=== PATIENT | female | born 1990 | race Hispanic/Latino ===

== ENCOUNTER 2018-11-27 21:29 | Emergency (ER) | payer MEDICAID ==
[~2018-11-27 21:29] MED LIST: FERR-52 PO; PREN1TAB26 PO
[2018-11-27] MEDS ORDERED: ACETAMINOPHEN 325 MG TAB ONE (21:54)
[2018-11-27 22:03] LABS: APPEARANCE,URINE CLOUDY (CLEAR); BILIRUBIN,URINE NEGATIVE (NEGATIVE); COLOR,URINE YELLOW (YELLOW); GLUCOSE, URINE (UA) NEGATIVE (NEGATIVE); KETONES,URINE NEGATIVE (NEGATIVE); LEUKOCYTE ESTERASE ,URINE MODERATE (NEGATIVE); NITRATE,URINE NEGATIVE (NEGATIVE); OCCULT BLOOD,URINE LARGE (NEGATIVE); PH,URINE 6.5 (5.0-8.0); PROTEIN,URINE >=300 mg/dL (NEGATIVE); UROBILINOGEN,URINE 0.2 mg/dL (0.2-1.0)
[2018-11-27 22:10] LABS: BACTERIA,URINE Few /HPF (None Seen); WBC,URINE 26-50 /HPF (0-1)
[2018-11-27 22:11] LABS: SQUAMOUS EPITHELIAL CELL,UR Rare /HPF (0-2)
[2018-11-27 22:11] LABS: RAPID GROUP A STREP NEGATIVE (NEGATIVE)
[2018-11-27] MEDS ORDERED: CEFTRIAXONE SODIUM 1 GM ONE (22:20)
[2018-11-27] MEDS ORDERED: LIDOCAINE HCL-MPF 1% 2ML VIAL ONE (22:20)
== END 2018-11-27 23:02 | disposition home or self-care (01) ==
LOC: EDH 21:29
DX: O99.512 Diseases of the respiratory system complicating pregnancy, second trimester (principal); O23.12 Infections of bladder in pregnancy, second trimester; J06.9 Acute upper respiratory infection, unspecified; Z3A.15 15 weeks gestation of pregnancy
CPT/HCPCS: 81001; 87804 ×2; 87880; 96372; 99284; J0696; J3490

== ENCOUNTER 2018-12-25 13:02 | Observation (INO) | payer MEDICAID ==
[2018-12-25 14:04] LABS: APPEARANCE,URINE Clear (CLEAR); BILIRUBIN,URINE Negative (NEGATIVE); COLOR,URINE Yellow (YELLOW); GLUCOSE, URINE (UA) Negative (NEGATIVE); KETONES,URINE 40 mg/dL (NEGATIVE); LEUKOCYTE ESTERASE ,URINE Negative (NEGATIVE); NITRATE,URINE Negative (NEGATIVE); OCCULT BLOOD,URINE Moderate (NEGATIVE); PROTEIN,URINE Negative (NEGATIVE)
[2018-12-25] MEDS ORDERED: LACTATED RINGERS 1000ML 1,000 ML IV PRN (14:04)
[2018-12-25 14:06] LABS: BACTERIA,URINE Rare /HPF (None Seen); SQUAMOUS EPITHELIAL CELL,UR Rare /HPF (0-2); WBC,URINE 0-1 /HPF (0-1)
[2018-12-25 14:13] LABS: HEMATOCRIT 38.3 % (36-48); MEAN CORPUSCULAR HEMOGLOBIN 30.3 pg (27.0-33.0); MEAN CORPUSCULAR HGB CONC 34.4 g/dL (32.0-36.0); PLATELET COUNT (AUTO) 346 K/uL (130-400); RED BLOOD CELL COUNT(AUTO) 4.35 MIL/uL (4.00-5.50); RED CELL DISTRIBUTION WIDTH 12.9 % (11.0-15.5); WHITE BLOOD COUNT (AUTO) 12.9 K/uL (4.8-10.8)
[2018-12-25] MEDS ORDERED: DIAZEPAM 5 MG/ML 2 ML SYG IV PRN (14:15)
[2018-12-25] MEDS ORDERED: MEPERIDINE-PF 50 MG/ML SYG SIVP PRN (14:15)
[2018-12-25] MEDS ORDERED: PROMETHAZINE HCL 25 MG/ML 1ML AMPULE IM PRN (14:15)
[2018-12-25] MEDS ORDERED: ONDANSETRON HCL 4 MG/2 ML VIAL IV PRN (14:15)
[2018-12-25 14:28] LABS: INR 0.89 (0.85-1.15); PARTIAL THROMBOPLASTIN TIME 26.3 SEC (26.3-35.5); PROTHROMBIN TIME 9.2 SEC (9.6-11.6)
[2018-12-25] MEDS: MISOPROSTOL 200 MCG TABLET VG SCH ×2 (16:01→23:35)
[2018-12-25 16:44] LABS: ALBUMIN 3.7 g/dL (3.5-5.0); BILIRUBIN,TOTAL 0.3 mg/dL (0.2-1.0); CREATININE 0.6 mg/dL (0.5-1.5); POTASSIUM 3.3 mmol/L (3.5-5.1); TOTAL PROTEIN, SERUM 8.4 g/dL (6.0-8.3)
[2018-12-26] MEDS ORDERED: MISOPROSTOL 200 MCG TABLET ONE (02:18)
[2018-12-26] MEDS: MISOPROSTOL 200 MCG TABLET VG SCH (02:38)
[2018-12-26] MEDS ORDERED: OXYTOCIN-LR 20 UNITS/1000 ML 1,000 ML IV ONE (05:28)
[2018-12-26] MEDS ORDERED: OXYTOCIN-LR 20 UNITS/1000 ML 1,000 ML IV SCH (06:00)
[2018-12-26] MEDS ORDERED: ACETAMINOPHEN 325 MG TAB PO PRN (06:00)
[2018-12-26] MEDS ORDERED: IBUPROFEN 600 MG TABLET PO PRN (06:00)
[2018-12-26] MEDS ORDERED: IBUPROFEN 600 MG TABLET ONE (06:10)
== END 2018-12-26 15:35 | disposition home or self-care (01) ==
LOC: LDH 13:02 → INTOOBSV 13:02
PROVIDERS: ADMIT Obstetrics & Gynecology; ATTEND Obstetrics & Gynecology
DX: O02.1 Missed abortion (principal); O09.292 Supervision of pregnancy with other poor reproductive or obstetric history, second trimester; O09.92 Supervision of high risk pregnancy, unspecified, second trimester; O23.42 Unspecified infection of urinary tract in pregnancy, second trimester; O41.92X0 Disorder of amniotic fluid and membranes, unspecified, second trimester, not applicable or unspecified; O26.892 Other specified pregnancy related conditions, second trimester; R11.0 Nausea; Z3A.19 19 weeks gestation of pregnancy
CPT/HCPCS: 36415; 76805; 80053; 81001; 85027; 85384; 85610; 85730; 86592; 86850; 86900; 86901; 87340 ×2; 96365; 96366; 96372; 96375; A4351; G0378 ×18; J2175; J2550; J2590 ×2; J7120

== ENCOUNTER 2019-11-02 09:38 | Emergency (ER) | payer MEDICAID, OTHER ==
[2019-11-02 10:25] LABS: BASOPHILS % (AUTO) 0.3 % (0.0-5.0); EOSINOPHILS % (AUTO) 0.8 % (0.0-8.0); HEMATOCRIT 34.6 % (36-48); LYMPHOCYTES % (AUTO) 21.8 % (21.0-51.0); MEAN CORPUSCULAR HEMOGLOBIN 29.9 pg (27.0-33.0); MEAN CORPUSCULAR HGB CONC 34.7 g/dL (32.0-36.0); MEAN CORPUSCULAR VOLUME 86.3 fL (79-99); MONOCYTES % (AUTO) 4.8 % (3.0-13.0); PLATELET COUNT (AUTO) 305 K/uL (130-400); RED BLOOD CELL COUNT(AUTO) 4.01 MIL/uL (4.00-5.50); RED CELL DISTRIBUTION WIDTH 12.5 % (11.0-15.5); WHITE BLOOD COUNT (AUTO) 10.5 K/uL (4.8-10.8)
[2019-11-02 11:00] LABS: APPEARANCE,URINE Clear (CLEAR); BILIRUBIN,URINE Negative (NEGATIVE); COLOR,URINE Yellow (YELLOW); GLUCOSE, URINE (UA) Negative (NEGATIVE); KETONES,URINE Negative (NEGATIVE); LEUKOCYTE ESTERASE ,URINE Trace (NEGATIVE); NITRATE,URINE Negative (NEGATIVE); OCCULT BLOOD,URINE Moderate (NEGATIVE); PROTEIN,URINE Negative (NEGATIVE); UROBILINOGEN,URINE 0.2 mg/dL (0.2-1.0)
[2019-11-02 11:29] LABS: BACTERIA,URINE Rare /HPF (None Seen); RBC,URINE 0-1 /HPF (0-1)
[2019-11-02 11:30] LABS: SQUAMOUS EPITHELIAL CELL,UR 0-2 /HPF (0-2)
== END 2019-11-02 12:23 | disposition home or self-care (01) ==
LOC: EDH 09:38
DX: O20.0 Threatened abortion (principal); Z3A.01 Less than 8 weeks gestation of pregnancy; O23.11 Infections of bladder in pregnancy, first trimester
CPT/HCPCS: 36415; 76817; 81001; 84702; 85025

== ENCOUNTER 2021-11-02 08:09 | Observation (INO) | payer BC, MEDICAID ==
[~2021-11-02] VITALS: Ht 162.6 cm; Wt 94.3 kg
[2021-11-02 09:17] VITALS: BP 98/56
[2021-11-02 09:30] LABS: APPEARANCE,URINE CLEAR (CLEAR); BILIRUBIN,URINE NEGATIVE (NEGATIVE); COLOR,URINE YELLOW (YELLOW); GLUCOSE, URINE (UA) NEGATIVE (NEGATIVE); KETONES,URINE 40 mg/dL (NEGATIVE); LEUKOCYTE ESTERASE ,URINE NEGATIVE (NEGATIVE); NITRATE,URINE NEGATIVE (NEGATIVE); OCCULT BLOOD,URINE MODERATE (NEGATIVE); PROTEIN,URINE NEGATIVE (NEGATIVE); UROBILINOGEN,URINE 0.2 mg/dL (0.2-1.0)
[2021-11-02] MEDS ORDERED: ACETAMINOPHEN 500 MG TABLET PO SCH (09:30)
[2021-11-02] MEDS ORDERED: LACTATED RINGERS 1000ML 1,000 ML IV PRN (09:30)
[2021-11-02 09:40] LABS: BACTERIA,URINE Rare /HPF (None Seen); RBC,URINE 0-1 /HPF (0-1); SQUAMOUS EPITHELIAL CELL,UR Rare /HPF (0-2); WBC,URINE 0-1 /HPF (0-1)
== END 2021-11-02 11:45 | disposition home or self-care (01) ==
LOC: EDH 08:09 → LDH 08:10
PROVIDERS: ADMIT Obstetrics & Gynecology; ATTEND Obstetrics & Gynecology
DX: O36.8130 Decreased fetal movements, third trimester, not applicable or unspecified (principal); O26.893 Other specified pregnancy related conditions, third trimester; R35.0 Frequency of micturition; O98.513 Other viral diseases complicating pregnancy, third trimester; U07.1 COVID-19; Z3A.36 36 weeks gestation of pregnancy
CPT/HCPCS: 96361; 96360; 87804 ×2; 81001; 87635; 76819; G0378 ×2; J7120 ×2

== ENCOUNTER 2023-08-28 09:26 | Emergency (ER) | payer BC, MEDICAID ==
[~2023-08-28] VITALS: Ht 165.1 cm; Wt 76.2 kg
[~2023-08-28 09:26] MED LIST changes: +ACET-2079 PO; -FERR-52 PO; +FERS325 PO
[2023-08-28] MEDS: ONDANSETRON 4MG INJ IV ONE (10:14)
[2023-08-28] MEDS: DiphenhydrAMINE HCL 50 MG/ML VIAL IV ONE (10:14)
[2023-08-28] MEDS: DEXAMETHASONE SOD PHOSPHATE 4 MG/ML 1ML VIAL IVP ONE (10:14)
[2023-08-28] MEDS: 0.9%NACL 1000ML 1,000 ML IV ONE (10:14)
[2023-08-28 10:18] LABS: HCG,QUALITATIVE URINE POSITIVE (NEGATIVE)
[2023-08-28 10:32] LABS: BASOPHILS # (AUTO) 0.03 K/uL (0.00-0.20); BASOPHILS % (AUTO) 0.4 % (0.0-5.0); EOSINOPHILS # (AUTO) 0.12 K/uL (0.00-0.70); EOSINOPHILS % (AUTO) 1.6 % (0.0-8.0); HEMATOCRIT 34.4 % (36-48); IMMATURE GRANULOCYTE ABSOLUTE 0.02 K/uL (0-1); LYMPHOCYTES # (AUTO) 1.9 K/uL (1.0-4.8); LYMPHOCYTES % (AUTO) 25.2 % (21.0-51.0); MEAN CORPUSCULAR HEMOGLOBIN 30.5 pg (27.0-33.0); MEAN CORPUSCULAR HGB CONC 34.6 g/dL (32.0-36.0); MEAN CORPUSCULAR VOLUME 88.2 fL (79-99); MONOCYTES # (AUTO) 0.5 K/uL (0.1-1.0); NEUTROPHILS # (AUTO) 5.1 K/uL (1.8-7.7); NEUTROPHILS % (AUTO) 66.5 % (40.0-77.0); PLATELET COUNT (AUTO) 276 K/uL (130-400); RED CELL DISTRIBUTION WIDTH 13.5 % (11.0-15.5); WHITE BLOOD COUNT (AUTO) 7.7 K/uL (4.8-10.8)
[2023-08-28 10:44] LABS: CREATININE 0.5 mg/dL (0.5-1.0); POTASSIUM 3.5 mmol/L (3.5-5.1)
[2023-08-28 10:49] LABS: ALBUMIN 3.2 g/dL (3.5-5.0); BILIRUBIN,TOTAL 0.3 mg/dL (0.2-1.0); TOTAL PROTEIN, SERUM 7.1 g/dL (6.0-8.3)
[2023-08-28 10:57] LABS: APPEARANCE,URINE CLEAR (CLEAR); BACTERIA,URINE RARE /HPF (None Seen); BILIRUBIN,URINE NEGATIVE (NEGATIVE); COLOR,URINE LIGHT-YELLOW (YELLOW); GLUCOSE, URINE (UA) NEGATIVE (NEGATIVE); KETONES,URINE NEGATIVE (NEGATIVE); LEUKOCYTE ESTERASE ,URINE NEGATIVE Leu/uL (NEGATIVE); MUCUS,URINE RARE LPF (None Seen); NITRATE,URINE NEGATIVE (NEGATIVE); OCCULT BLOOD,URINE SMALL (NEGATIVE); PH,URINE 7.5 (5.0-8.0); PROTEIN,URINE NEGATIVE (NEGATIVE); SQUAMOUS EPITHELIAL CELL,UR RARE /HPF (0-2); UROBILINOGEN,URINE 0.2 mg/dL (0.2-1.0); WBC,URINE 0-1 /HPF (0-1)
[2023-08-28] MEDS ORDERED: PRED50TA2 PO (11:39)
[2023-08-28] MEDS ORDERED: ONDA-243 PO (11:39)
[2023-08-28] MEDS ORDERED: DIPH50 PO (11:39)
[2023-08-28 11:58] VITALS: BP 116/72; PULSE 85; RESP 14; O2SAT 99
== END 2023-08-28 12:05 | disposition home or self-care (01) ==
LOC: EDH 09:26
DX: O26.892 Other specified pregnancy related conditions, second trimester (principal); R51.9 Headache, unspecified; Z79.899 Other long term (current) drug therapy; Z98.890 Other specified postprocedural states; Z3A.16 16 weeks gestation of pregnancy
CPT/HCPCS: 99284; 96374; 96375; 96361; 80053; 85025; 81001; 81025; 36415; J1100; J1200; J7030; J2405; 96376

== ENCOUNTER 2023-12-05 20:51 | Observation (INO) | payer MEDICAID ==
[~2023-12-05] VITALS: Ht 162.6 cm; Wt 82.5 kg
[~2023-12-05 20:51] MED LIST changes: +DIPH50 PO; +ONDA-243 PO; +PRED50TA2 PO
[2023-12-05 20:54] VITALS: BP 121/69; PULSE 92; RESP 20; TEMP 98.4
[2023-12-05 21:23] LABS: ADD UA MICROSCOPIC YES; APPEARANCE,URINE CLEAR (CLEAR); BILIRUBIN,URINE NEGATIVE (NEGATIVE); COLOR,URINE LIGHT-YELLOW (YELLOW); GLUCOSE, URINE (UA) NEGATIVE (NEGATIVE); KETONES,URINE NEGATIVE (NEGATIVE); LEUKOCYTE ESTERASE ,URINE NEGATIVE Leu/uL (NEGATIVE); NITRATE,URINE NEGATIVE (NEGATIVE); OCCULT BLOOD,URINE MODERATE (NEGATIVE); PH,URINE 6.5 (5.0-8.0); PROTEIN,URINE 10 mg/dL (NEGATIVE); UROBILINOGEN,URINE 0.2 mg/dL (0.2-1.0)
[2023-12-05 21:25] LABS: BACTERIA,URINE FEW /HPF (None Seen); MUCUS,URINE RARE LPF (None Seen); SQUAMOUS EPITHELIAL CELL,UR RARE /HPF (0-2)
[2023-12-05] MEDS ORDERED: LACTATED RINGERS 1000ML IV PRN (21:30)
[2023-12-05] MEDS: LACTATED RINGERS 1000ML 1,000 ML IV PRN (23:06)
== END 2023-12-06 07:30 | disposition home or self-care (01) ==
LOC: EDH 20:51 → LDH 21:06
PROVIDERS: ADMIT Obstetrics & Gynecology; ATTEND Obstetrics & Gynecology
DX: O26.893 Other specified pregnancy related conditions, third trimester (principal); R10.30 Lower abdominal pain, unspecified; Z3A.31 31 weeks gestation of pregnancy; W01.0XXA Fall on same level from slipping, tripping and stumbling without subsequent striking against object, initial encounter; Y93.89 Activity, other specified; Y92.89 Other specified places as the place of occurrence of the external cause; Y99.8 Other external cause status
CPT/HCPCS: 96360; 86850; 86900; 86901; 81001; 36415; 76805; 96361; G0378 ×9; J7120 ×2

== ENCOUNTER 2024-01-30 21:07 | Emergency (ER) | payer MEDICAID ==
[~2024-01-30] VITALS: Ht 165.1 cm; Wt 77.6 kg
[2024-01-30 21:38] LABS: APPEARANCE,URINE CLEAR (CLEAR); BILIRUBIN,URINE NEGATIVE (NEGATIVE); COLOR,URINE LIGHT-YELLOW (YELLOW); GLUCOSE, URINE (UA) NEGATIVE (NEGATIVE); KETONES,URINE NEGATIVE (NEGATIVE); LEUKOCYTE ESTERASE ,URINE NEGATIVE Leu/uL (NEGATIVE); NITRATE,URINE NEGATIVE (NEGATIVE); OCCULT BLOOD,URINE MODERATE (NEGATIVE); PH,URINE 6.5 (5.0-8.0); PROTEIN,URINE NEGATIVE (NEGATIVE)
[2024-01-30 21:42] LABS: ADD UA MICROSCOPIC YES
[2024-01-30 21:45] LABS: BACTERIA,URINE RARE /HPF (None Seen); MUCUS,URINE RARE LPF (None Seen); SQUAMOUS EPITHELIAL CELL,UR RARE /HPF (0-2); YEAST,URINE BUDDING FEW /HPF (None Seen)
[2024-01-30] MEDS: morPHINE 2 MG SYG IVP ONE (22:04)
[2024-01-30 22:07] LABS: BASOPHILS # (AUTO) 0.03 K/uL (0.00-0.20); BASOPHILS % (AUTO) 0.5 % (0.0-5.0); EOSINOPHILS # (AUTO) 0.34 K/uL (0.00-0.70); EOSINOPHILS % (AUTO) 5.6 % (0.0-8.0); HEMATOCRIT 31.3 % (36-48); IMMATURE GRANULOCYTE ABSOLUTE 0.02 K/uL (0-1); LYMPHOCYTES # (AUTO) 2.1 K/uL (1.0-4.8); LYMPHOCYTES % (AUTO) 34.3 % (21.0-51.0); MEAN CORPUSCULAR HEMOGLOBIN 24.7 pg (27.0-33.0); MEAN CORPUSCULAR HGB CONC 31.3 g/dL (32.0-36.0); MEAN CORPUSCULAR VOLUME 78.8 fL (79-99); MONOCYTES # (AUTO) 0.5 K/uL (0.1-1.0); MONOCYTES % (AUTO) 8.8 % (3.0-13.0); NEUTROPHILS # (AUTO) 3.1 K/uL (1.8-7.7); NEUTROPHILS % (AUTO) 50.5 % (40.0-77.0); PLATELET COUNT (AUTO) 365 K/uL (130-400); RED BLOOD CELL COUNT(AUTO) 3.97 MIL/uL (4.00-5.50)
--- NOTE | 2024-01-30 22:15 | ERN ---
General Chief Complaint: Post-Op Problem Stated Complaint: C/O BURING WHEN VOIDING, W/ DRAINAGE FROM C-SECTIO Time Seen by MD: 21:13 History of Present Illness Initial Comments Ms. Dang is a very pleasant 33-year-old female significant past medical history of recent on Tuesday who presents today with a chief complaint of abdominal pain. Patient reports that she has been noticing yellow discharge from her incision site. She also has difficulty with urination. She reports that she is concerned that she may be getting a skin site infection Allergies: Coded Allergies: No Known Drug Allergies (Verified Allergy, Unknown, 12/05/23) Home Meds Discontinued Reported Medications Aspirin (ASPIRIN 81MG CHEW TAB) 81 Mg Tab.chew, 1 TAB PO DAILY for 30 Days, #30 TAB 0 Refills 01/25/24 Vits W-Ca,Fe,FA(<1Mg) ( Vitamins) 27 Mg Iron-800 Mcg Tablet, 1 TAB PO DAILY for 30 Days, #30 TAB 0 Refills 01/25/24 Acetaminophen with Codeine (Acetaminophen-Cod #3 Tablet) 1 Each Tablet, 1 EACH PO Q6H, #60 TAB 11/21/21 Ferrous Sulfate (Ferrous Sulfate) 325 Mg Ectab, 325 MG PO DAILYDINNER, #60 TAB.EC 11/21/21 Vit/Iron Fumarate/FA ( Vitamins Tablet) 1 Each Tablet, 1 EACH PO DAILYDINNER, TAB 03/13/15 Discontinued Scripts Ondansetron (Ondansetron Odt) 4 Mg Tab.rapdis, 4 MG PO Q6HPRN PRN for nausea, #16 TAB 0 Refills Prov:HU SHAH MD 08/28/23 Prednisone (Prednisone) 50 Mg Tablet, 50 MG PO TIDP for THOMPSON, #5 TAB 0 Refills Prov:HU SHAH MD 08/28/23 Diphenhydramine HCl (Benadryl) 50 Mg Cap, 50 MG PO TID PRN for HEADACHE for 10 Days, #30 CAP 0 Refills Prov:HU SHAH MD 08/28/23 Past Medical History Past Medical History: No Pertinent History Past Surgical History: Female( History) : 8 Para: 3 Aborts: 4 ROS Dictation Constitutional: Negative for fever,chills, and weight loss Eyes: Negative for injury, pain,redness, and discharge ENT: Negative for injury,pain or swelling Cardiovascular: Negative for chest pain, palpitations, and edema Respiratory: Negative for shortness of breath, cough, and wheezing, Abdomen/GI: Positive for abdominal pain Back: Negative for injury and pain : Negative for injury, bleeding and discharge MS/Extremity: Negative for injury and deformity Skin: Negative for rash, and discoloration Neuro: Negative for headache, weakness, numbness, tingling, and seizure Psych: Negative for suicide ideation, homicidal ideation, and hallucinations Physical Exam Physical Exam Dictation General: awake, alert, NAD Head/Face: Normocephalic, atraumatic Eyes: PERRL, EOMI, vision at baseline ENT: oral cavity clear Neck: Trachea midline, supple, no nuchal rigidity Cardiovascular: RRR, normal S1/S2, No MRGs, no JVD Respiratory: CTAB, no respiratory distress, No rales or wheezes Abdomen: Horizontal skin incision that does not look red or have any subcutaneous induration. No evidence of drainage. Skin: Warm, dry, normal turgor, no rash MS/Extremity: Pulses equal, no cyanosis, Neuro: COAx4, GCS 15, strength 5/5, Psych: Normal behavior, mood, and affect normal Results Laboratory and Microbiology Lab and Micro Result Laboratory Tests Test 01/30/24 21:12 01/30/24 21:45 Urine Color LIGHT-YELLOW (YELLOW) Urine Appearance CLEAR (CLEAR) Urine pH 6.5 (5.0-8.0) Urine Specific Douglas 1.018 (1.001-1.031) Urine Protein NEGATIVE mg/dL (NEGATIVE) Urine Glucose (UA) NEGATIVE mg/dL (NEGATIVE) Urine Ketones NEGATIVE mg/dL (NEGATIVE) Urine Occult Blood MODERATE (NEGATIVE) H Urine Nitrate NEGATIVE (NEGATIVE) Urine Bilirubin NEGATIVE mg/dL (NEGATIVE) Urine Urobilinogen 2.0 mg/dL (0.2-1.0) H Urine Leukocyte Esterase NEGATIVE Kath/uL Urine RBC 11-25 /HPF (0-1) H Urine WBC 2-5 /HPF (0-1) H Urine Squamous Epithelial Cells RARE /HPF (0-2) Urine Bacteria RARE /HPF (None Seen) Urine Yeast FEW /HPF (None Seen) White Blood Count 6.0 K/uL (4.8-10.8) Red Blood Count 3.97 MIL/uL (4.00-5.50) L Hemoglobin 9.8 g/dL (12.0-16.0) L Hematocrit 31.3 % (36-48) L Mean Corpuscular Volume 78.8 fL (79-99) L Mean Corpuscular Hemoglobin 24.7 pg (27.0-33.0) L Mean Corpuscular Hemoglobin Concent 31.3 g/dL (32.0-36.0) L Red Cell Distribution Width 15.0 % (11.0-15.5) Platelet Count 365 K/uL (130-400) Mean Platelet Volume 9.1 fL (7.5-10.5) Immature Granulocyte % (Auto) 0.3 % (0-1) Neutrophils (%) (Auto) 50.5 % (40.0-77.0) Lymphocytes (%) (Auto) 34.3 % (21.0-51.0) Monocytes (%) (Auto) 8.8 % (3.0-13.0) Eosinophils (%) (Auto) 5.6 % (0.0-8.0) Basophils (%) (Auto) 0.5 % (0.0-5.0) Neutrophils # (Auto) 3.1 K/uL (1.8-7.7) Lymphocytes # (Auto) 2.1 K/uL (1.0-4.8) Monocytes # (Auto) 0.5 K/uL (0.1-1.0) Eosinophils # (Auto) 0.34 K/uL (0.00-0.70) Basophils # (Auto) 0.03 K/uL (0.00-0.20) Absolute Immature Granulocyte (auto 0.02 K/uL (0-1) Nucleated Red Blood Cells 0.0 % (0.0-0.19) Sodium Level 137 mmol/L (136-145) Potassium Level 3.7 mmol/L (3.5-5.1) Chloride Level 103 mmol/L (101-111) Carbon Dioxide Level 27 mmol/L (21-32) Blood Urea Nitrogen 14 mg/dL (7-18) Creatinine 0.5 mg/dL (0.5-1.0) Glomerular Filtration Rate Calc 129 mL/min (>90) Random Glucose 100 mg/dL (70-105) Total Calcium 9.1 mg/dL (8.5-10.1) Total Bilirubin 0.3 mg/dL (0.2-1.0) Aspartate Amino Transf (AST/SGOT) 18 U/L (10-37) Alanine Aminotransferase (ALT/SGPT) 23 U/L (12-78) Alkaline Phosphatase 133 U/L (50-136) Total Protein 7.0 g/dL (6.0-8.3) Albumin 2.7 g/dL (3.5-5.0) L MDM Patient's ultrasound does not show any acute subcutaneous or abdominal wall thickening or induration. Patient does not have any free fluid. Patient will be given Bactrim for prophylactic coverage MDM: Differential diagnosis: Pelvic pain Rationale: Tests considered and ordered secondary to shared decision making include: Previous outside records reviewed: Old ER visits. Risk of complication and/or morbidity or mortality of patient management: None Medications-Per medication reconciliation Need for hospitalization: Patient does not meet criteria for hospitalization. Need for emergency major/minor surgery: No There are no social concerns with this patient. Prescription drug management Prescriptions will include symptomatic care Patient's prior external medical records from other ER visits were reviewed by me as indicated. Prior testing and results from previous visits were reviewed. Prior tests were taken into account with medical decision making and resource utilization, independent historian/historians were used to obtain complete medical history. I independently interpreted the test that were performed, results were reviewed by me and considered findings on radiology if ordered. Medical management and examination interpretation discussions were had by me with other qualified healthcare professionals as indicated for the patient's care. ED Course Orders Procedure Category Date Status Time Cbc With Differential LAB 01/30/24 Complete 21:29 Comprehensive LAB 01/30/24 Complete Metabolic Panel 21:29 Urinalysis Profile LAB 01/30/24 Complete 21:29 Us Pelvic Non-Ob Comp US 01/30/24 Taken 21:29 Morphine 2mg Syg PHA 01/30/24 Complete (Morphine 2mg Syg) 21:30 Sulfamethox-Tmp Ds PHA 01/30/24 In Process 800/160 Tab (Bactrim 23:00 Current Medications Medications (Trade) Dose Ordered Sig/Alicia Route PRN Reason Start Time Stop Time Status Last Admin Dose Admin Morphine Sulfate (morPHINE 2MG SYG) 2 mg ONCE ONCE IVP 01/30/24 21:30 01/30/24 21:31 DC 01/30/24 22:04 Trimethoprim/ Sulfamethoxazole (BactRIM DS) 1 tab BID PO 01/30/24 23:00 02/09/24 22:59 01/30/24 22:47 Vital Signs Date Time Temp Pulse Resp B/P (MAP) Pulse Ox O2 Delivery O2 Flow Rate FiO2 01/30/24 22:10 98.2 85 18 110/72 99 Room Air* 0 21 01/30/24 21:09 98.4 72 20 131/86 97 Room Air DX & DISP Disposition: Discharge Departure Impression: Primary Impression: Pelvic pain Condition: Stable Scripts Sulfamethoxazole/Trimethoprim (Bactrim Ds Tablet) 800 Mg-160 Mg Tablet 1 TAB PO BID for 10 Days, #20 TAB 0 Refills Prov: ALTON MAO MD 01/30/24 Referrals: DAPHNEY SUBRAMANIAN MD (PCP) ALTON MAO MD Jan 30, 2024 22:15
[2024-01-30 22:19] LABS: CREATININE 0.5 mg/dL (0.5-1.0); POTASSIUM 3.7 mmol/L (3.5-5.1)
[2024-01-30 22:25] LABS: ALBUMIN 2.7 g/dL (3.5-5.0); BILIRUBIN,TOTAL 0.3 mg/dL (0.2-1.0)
[2024-01-30] MEDS: sulfaMETHOX-TMP DS 800/160 TAB PO SCH (22:47)
[2024-01-30] MEDS ORDERED: SULF1TAB42 PO (23:50)
[2024-01-30 23:52] VITALS: BP 121/65; PULSE 85; RESP 18; TEMP 98.3; O2SAT 98
--- NOTE | 2024-01-31 08:38 | HMCIMG ---
US PELVIC NON-OB COMP REASON: Abdominal Pain COMPARISON: None TECHNIQUE: Transvaginal pelvic sonogram was performed. FINDINGS: Uterus is enlarged at 15.8 x 10.9 x 8.6 cm, consistent with recent state. Endometrium is 11 mm. There is no evidence of retained products of conception. Both ovaries appear unremarkable. There is normal-appearing blood flow. There is no cyst or mass. There is no free fluid in the cul-de-sac. Evaluation of these site shows no evidence of focal fluid collection or other complication. IMPRESSION: 1. Enlarged uterus consistent with state. 2. Otherwise unremarkable pelvic sonogram.
== END 2024-01-30 23:58 | disposition home or self-care (01) ==
LOC: EDH 21:07
DX: R10.2 Pelvic and perineal pain (principal); Z79.82 Long term (current) use of aspirin
CPT/HCPCS: 99285; 96374; 76856; 80053; 85025; 81001; 36415; J2270